=== PATIENT | female | born 1990 | race Caucasian/White ===

== ENCOUNTER 2019-04-01 17:40 | Inpatient (IN) ==
--- OUTSIDE RECORDS SUMMARY | 2019-04-01 17:46 | External Medical Summary | Continuity of Care Document ---
:1990 Author Name Flynn Mckay, Provider Address Unavailable Unavailable , Care Team Providers Name Role Phone Unavailable Unavailable Unavailable PAVITHRA CORTEZ Unavailable Unavailable Unavailable Unavailable Unavailable Problems Graves disease (242.00) (E05.00) Allergies and Adverse Reactions Penicillins (Allergy) Trimox (Allergy) Medications Synthroid 175 MCG Oral Tablet; TAKE 1 TA BLET DAILY WITH A FULL GLASS OF WATER ON AN EMPTY STOMACH, WAIT 30 MINUTES TO EAT , M.D. Start: Refills: 0 Aviane 0.1-20 MG-MCG Oral Tablet; TAKE 1 TABLET DAILY. , M.D . Start: 01-Dec-2014 Refills: 0 Proctozone-HC 2.5 % Rectal Cream; INSERT 1 APPLICATORFUL RECTALLY TWICE DAILY FOR 7 DAYS, THEN NEEDED. , M.D. Start: 01-Dec-2014 Refills: 0 Procedures History of Pyeloplasty Status: Completed History of Colonoscopy (Fiberoptic) Stat us: Completed Immunizations Immunizations not documented Family History Unknown Family Member Family history of diabetes mellitus (V18.0) Status: Active Comments: Family History (Z83.3) Mother Family history of hypertension (V17.49) (Z82.49) Status: Act [place] Father Family history of hyperlipidemia (V18.19) (Z83.438) Status: Active Family history of type 2 diabetes mellitus (V18.0) (Z83.3) S tatus: Active Sister Family history of hypercholesterolemia (V18.19) (Z83.42) Sta tus: Active Social History - Smoking Status Never smoker Plan of Treatment Planned Observations Planned Goals not documented Results No Known Results Results not documented
[2019-04-01] MEDS ORDERED: NIFEdipine 10 MG CAP PO STA (18:17)
[2019-04-01] MEDS ORDERED: NIFEdipine 10 MG CAP ONE (18:17)
[2019-04-01] MEDS ORDERED: OXYTOCIN 30 UNITS/500 ML BAG IV PRN (18:27)
[2019-04-01] MEDS: LACTATED RINGER'S 1,000 ML IV PRN (18:40)
[2019-04-01 18:50] LABS: Hematocrit (blood only) 40.6 % (37-47); Hemoglobin 13.6 g/dL (12.0-16.0); Mean Corpuscular Hemoglobin 27.5 pg (25-34); Mean Platelet Volume 11.7 fL (7.4-10.4); Platelet Count 177 K/uL (130-400); RDW Coefficient of Variation 14.9 % (11.5-14.5); RDW Standard Deviation 44.1 fL (36.4-46.3); Red Blood Count 4.95 M/uL (4.2-5.4); White Blood Count 10.49 K/uL (4.8-10.8)
[2019-04-01 18:51] LABS: Mean Corpuscular Hgb Conc 33.5 g/dL (32-36)
[2019-04-01 19:08] LABS: Albumin Level 2.8 gm/dl (3.4-5.0); BUN Creatinine Ratio 11.4 (10-20); Calcium 9.1 mg/dl (8.5-10.1); Creatinine Clr Calc Pharmacy 144.8 ml/min; Est GFR (African American) 119.9; Est GFR (Non-African American) 103.5; Potassium 4.1 mmol/L (3.5-5.1)
[2019-04-01] MEDS ORDERED: LABETALOL HCL 100 MG TAB PO ONE (19:10)
[2019-04-01 19:11] LABS: Albumin Globulin Ratio 0.6 (0.9-2); Bilirubin,Total 0.3 mg/dl (0.2-1); Globulin 4.4 gm/dl (2.5-4.0); Total Protein 7.2 gm/dl (6.4-8.2)
[2019-04-01 20:25] LABS: Creatinine Urine Random 35.1 mg/dl; Protein Creatinine Ratio Urine 0.2 (0-0.2); Total Protein Urine Random 7.3 mg/dl (0-11.9)
--- NOTE | 2019-04-01 20:44 | Obstetrical Progress Note ---
Date of Service April 01, 2019 Subjective 28yo G1 @ 37 + week s. seen in office today for routine PNC Bp in office was elevated. pt was sent to L&D for eavl; On arrival she has no headache, SOB, visual changes or RUQ pain. she does however have 2+pitting edema Bp's on arrival was elevated. pt received Procardia and labetalol BP's are now 130;80. [facility] labs are nml Plan' Observation overnight Results & Data Vital Signs (Past 12 Hours) Vital Signs Temp Pulse Pulse Resp BP BP 04/01/19 20:33 75 139/83 04/01/19 20:23 75 134/82 04/01/19 20:11 83 137/93 04/01/19 19:53 79 140/87 04/01/19 19:39 85 155/88 H 04/01/19 19:34 78 143/92 H 04/01/19 19:30 36.6 C 78 18 143/92 H 04/01/19 19:23 82 158/88 H 04/01/19 19:13 81 161/92 H 04/01/19 19:03 81 160/91 H 04/01/19 18:53 74 157/92 H 04/01/19 18:43 75 157/92 H 04/01/19 18:18 75 161/99 H 04/01/19 18:08 83 177/119 H 04/01/19 18:04 20 04/01/19 17:57 79 165/103 H 04/01/19 17:53 81 162/103 H
[2019-04-02] MEDS: LEVOTHYROXINE SODIUM 175 MCG TABLET PO SCH (06:10)
--- NOTE | 2019-04-02 07:58 | Obstetrical Progress Note ---
Date of Service April 02, 2019 Subjective pt is gestational HTN w/o severe features at 37+ weeks Bp stable with labetalol discussed induction of labor with pt as recommended by ACOG pt agrees with plan Growth scan ordered ]will start induction Results & Data Vital Signs (Past 12 Hours) Vital Signs Temp Pulse Resp BP 04/02/19 07:43 76 152/92 H 04/02/19 07:28 64 142/89 H 04/02/19 07:26 18 04/02/19 07:07 75 140/87 04/02/19 06:20 71 138/89 04/02/19 06:15 68 20 140/91 04/02/19 06:13 37.0 C 04/02/19 02:25 18 04/02/19 02:24 36.8 C 68 134/84 04/01/19 22:26 36.9 C 85 136/78 04/01/19 21:37 82 137/84 04/01/19 20:33 75 139/83 04/01/19 20:23 75 134/82 04/01/19 20:11 83 137/93
[2019-04-02] MEDS ORDERED: LABETALOL HCL 100 MG TAB PO SCH (08:00)
--- NOTE | 2019-04-02 09:17 | Ultrasound Report ---
ULTRASOUND LIMITED CLINICAL HISTORY: Assess growth. COMPARISON STUDY: No priors. FINDINGS: Real-time, grayscale, and color Doppler sonography of the fetus and gravid uterus is perfor med. There is a single live uterine gestation with an estimated heart rate of 129 beats per minute. P ositioning is cephalic. The placenta appears fundal. Scattered venous lakes are noted. The amniotic f luid index measures 10.13 cm, with the largest pocket measuring 3.7 cm. The cervix is not well-visual ized. Femoral length measures 7.58 cm, corresponding to estimated age of 38 weeks 5 days. Abdominal circumference measures 37.3 cm, corresponding to estimated age of 41 weeks 2 days. Biparietal diameter measures 9.91 cm, corresponding to an estimated age of 40 weeks 5 days. Head circumference measures 35.68 cm, corresponding to estimated age of 41 weeks 6 days. Overall estimation of age is 40 weeks 4 days +/- 2 weeks 6 days. Estimated weight is 4191 g +/- 629 g. IMPRESSION: 1. There is a single live intrauterine gestation as detailed above. 2. Note that this does not constitute a dedicated anatomic scan. Dictated: 04/02/2019 9:04 AM Transcribed: 04/02/2019 9:12 AM Amita [id number] Electronically signed by: Kiko Macias M.D. 04/02/2019 9:16 AM
[2019-04-02] MEDS ORDERED: miSOPROStoL 50 MCG TAB PO ONE (12:15)
[2019-04-02] MEDS ORDERED: DINOPROSTONE 10 MG INSERT PV ONE (17:06)
[2019-04-02] MEDS ORDERED: LABETALOL HCL 100 MG TAB PO ONE (17:47)
[2019-04-02] MEDS: LABETALOL HCL 100 MG TAB PO SCH ×2 (18:31→23:56)
[2019-04-03] MEDS: LABETALOL HCL 100 MG TAB PO SCH ×3 (06:03→22:03)
[2019-04-03] MEDS: LEVOTHYROXINE SODIUM 175 MCG TABLET PO SCH (06:39)
[2019-04-03 07:45] LABS: Basophils # (auto) 0.01 K/uL (0-0.2); Basophils % (auto) 0.1 %; Eosinophils # (auto) 0.03 K/uL (0-0.5); Eosinophils % (auto) 0.3 %; Hematocrit (blood only) 38.9 % (37-47); Immature Granulocytes # (auto) 0.05 K/uL (0.00-0.02); Immature Granulocytes % (auto) 0.5 %; Lymphocytes # (auto) 1.56 K/uL (1.2-3.4); Lymphocytes % (auto) 16.7 %; Mean Corpuscular Hemoglobin 27.6 pg (25-34); Mean Corpuscular Hgb Conc 33.4 g/dL (32-36); Mean Corpuscular Volume 82.6 fL (80-100); Monocytes # (auto) 0.78 K/uL (0.11-0.59); Monocytes % (auto) 8.3 %; Neutrophils # (auto) 6.92 K/uL (1.4-6.5); Neutrophils % (auto) 74.1 %; Platelet Count 154 K/uL (130-400); RDW Coefficient of Variation 15.1 % (11.5-14.5); RDW Standard Deviation 45.7 fL (36.4-46.3); Red Blood Count 4.71 M/uL (4.2-5.4); White Blood Count 9.35 K/uL (4.8-10.8)
[2019-04-03 08:12] LABS: Albumin Level 2.6 gm/dl (3.4-5.0); BUN Creatinine Ratio 11.2 (10-20); Calcium 8.8 mg/dl (8.5-10.1); Creatinine Clr Calc Pharmacy 137.7 ml/min; Est GFR (African American) 112.9; Est GFR (Non-African American) 97.4
[2019-04-03 08:15] LABS: Albumin Globulin Ratio 0.6 (0.9-2); Bilirubin,Total 0.5 mg/dl (0.2-1); Globulin 4.1 gm/dl (2.5-4.0); Total Protein 6.7 gm/dl (6.4-8.2)
[2019-04-03] MEDS ORDERED: DINOPROSTONE 10 MG INSERT PV ONE (08:53)
--- NOTE | 2019-04-03 08:56 | Obstetrical Progress Note ---
Date of Service April 03, 2019 Subjective Patient is a 28 yo at 37.6 wks who was admitted yesterday for IOL at term with elevated BP needed to be treated with medication She received 1 dose of PO Cytotec and 1 Cervidil last night, came out this morning Her labs have been WNL, BP's have been stable Denies ULLOA/ Change in vision/ N&V/ Epigastric or RUQ pain No ctxs/ LOF/VB +FM Reviewed her PMH, PSH, Meds, allergies On Synthroid and PNV No h/o smoking/ alcohol or drug use No h/o genital HSV/ Chlamydia/ GC GBS negative Vital Signs Temp Pulse Resp BP 04/03/19 08:54 69 143/96 H 04/03/19 08:43 68 139/96 04/03/19 06:41 68 136/92 04/03/19 06:02 66 18 143/89 H 04/03/19 04:38 36.7 C 68 16 132/81 04/03/19 02:32 74 129/83 04/02/19 23:54 36.6 C 75 16 134/88 04/02/19 21:29 36.7 C 75 16 137/79 04/02/19 19:05 36.8 C 16 04/02/19 19:04 66 137/85 04/02/19 18:28 70 141/92 H 04/02/19 17:09 77 154/100 H 04/02/19 16:54 74 145/99 H 04/02/19 15:17 36.8 C 16 04/02/19 15:16 68 143/91 H 04/02/19 12:57 78 132/90 04/02/19 10:47 76 135/84 Lab Results 04/01/19 04/01/19 04/01/19 Range/Units 18:35 18:35 18:35 WBC 10.49 (4.8-10.8) K/uL RBC 4.95 (4.2-5.4) M/uL Hgb 13.6 (12.0-16.0) g/dL Hct 40.6 (37-47) % MCV 82.0 (80-100) fL MCH 27.5 (25-34) pg MCHC 33.5 (32-36) g/dL RDW Std Deviation 44.1 (36.4-46.3) fL RDW Coeff of Nav[place] 14.9 H (11.5-14.5) % Plt Count 177 (130-400) K/uL MPV 11.7 H (7.4-10.4) fL Immature Gran % (Auto) % Neut % (Auto) % Lymph % (Auto) % [place] % (Auto) % Eos % (Auto) % Baso % (Auto) % Immature Gran # (Auto) (0.00-0.02) K/uL Neut # (Auto) (1.4-6.5) K/uL Lymph # (Auto) (1.2-3.4) K/uL [place] # (Auto) (0.11-0.59) K/uL Eos # (Auto) (0-0.5) K/uL Baso # (Auto) (0-0.2) K/uL Sodium 136 (136-145) mmol/L Potassium 4.1 (3.5-5.1) mmol/L Chloride 106 (98-107) mmol/L Carbon Dioxide 22 (21-32) mmol/L Anion Gap 8.0 (3-11) BUN 9 (7-18) mg/dl Creatinine 0.78 (0.6-1.2) mg/dl Est Cr Clr Drug Dosing 144.8 ml/min Est GFR ( Amer) 119.9 Est GFR (Non-Af Amer) 103.5 BUN/Creatinine Ratio 11.4 (10-20) Glucose 79 (70-99) mg/dl Calcium 9.1 (8.5-10.1) mg/dl Total Bilirubin 0.3 (0.2-1) mg/dl AST 11 L (15-37) U/L ALT 12 (12-78) U/L Alkaline Phosphatase 143 H (45-117) U/L Lactate Dehydrogenase 169 (84-246) U/L Total Protein 7.2 (6.4-8.2) gm/dl Albumin 2.8 L (3.4-5.0) gm/dl Globulin 4.4 H (2.5-4.0) gm/dl Albumin/Globulin Ratio 0.6 L (0.9-2) Ur Random Creatinine mg/dl U Random Total Protein (0-11.9) mg/dl Protein/Creatinin Ratio (0-0.2) 04/01/19 04/03/19 04/03/19 Range/Units 19:55 07:29 07:29 WBC 9.35 (4.8-10.8) K/uL RBC 4.71 (4.2-5.4) M/uL Hgb 13.0 (12.0-16.0) g/dL Hct 38.9 (37-47) % MCV 82.6 (80-100) fL MCH 27.6 (25-34) pg MCHC 33.4 (32-36) g/dL RDW Std Deviation 45.7 (36.4-46.3) fL RDW Coeff of Nav[place] 15.1 H (11.5-14.5) % Plt Count 154 (130-400) K/uL MPV 12.0 H (7.4-10.4) fL Immature Gran % (Auto) 0.5 % Neut % (Auto) 74.1 % Lymph % (Auto) 16.7 % [place] % (Auto) 8.3 % Eos % (Auto) 0.3 % Baso % (Auto) 0.1 % Immature Gran # (Auto) 0.05 H (0.00-0.02) K/uL Neut # (Auto) 6.92 H (1.4-6.5) K/uL Lymph # (Auto) 1.56 (1.2-3.4) K/uL [place] # (Auto) 0.78 H (0.11-0.59) K/uL Eos # (Auto) 0.03 (0-0.5) K/uL Baso # (Auto) 0.01 (0-0.2) K/uL Sodium 136 (136-145) mmol/L Potassium 4.0 (3.5-5.1) mmol/L Chloride 108 H (98-107) mmol/L Carbon Dioxide 21 (21-32) mmol/L Anion Gap 8.0 (3-11) BUN 9 (7-18) mg/dl Creatinine 0.82 (0.6-1.2) mg/dl Est Cr Clr Drug Dosing 137.7 ml/min Est GFR ( Amer) 112.9 Est GFR (Non-Af Amer) 97.4 BUN/Creatinine Ratio 11.2 (10-20) Glucose 93 (70-99) mg/dl Calcium 8.8 (8.5-10.1) mg/dl Total Bilirubin 0.5 (0.2-1) mg/dl AST 12 L (15-37) U/L ALT 13 (12-78) U/L Alkaline Phosphatase 144 H (45-117) U/L Lactate Dehydrogenase (84-246) U/L Total Protein 6.7 (6.4-8.2) gm/dl Albumin 2.6 L (3.4-5.0) gm/dl Globulin 4.1 H (2.5-4.0) gm/dl Albumin/Globulin Ratio 0.6 L (0.9-2) Ur Random Creatinine 35.1 mg/dl U Random Total Protein 7.3 (0-11.9) mg/dl Protein/Creatinin Ratio 0.2 (0-0.2) VE: 2/ 50%/ -3, posterior FHR reactive [place]: mild irregular ctxs Plan to continue with IOL/ cervical ripening, Cervidil All questions were answered Results & Data Vital Signs (Past 12 Hours) Vital Signs Temp Pulse Resp BP 04/03/19 08:43 68 139/96 04/03/19 06:41 68 136/92 04/03/19 06:02 66 18 143/89 H 04/03/19 04:38 36.7 C 68 16 132/81 04/03/19 02:32 74 129/83 04/02/19 23:54 36.6 C 75 16 134/88 04/02/19 21:29 36.7 C 75 16 137/79
--- NOTE | 2019-04-03 09:55 | Obstetrical Progress Note ---
Date of Service April 03, 2019 Subjective Cervidil is placed EFW: 4100 gr yesterday, cephalic Discussed limitation of US and ACOG recommendations Continue to monitor Results & Data Vital Signs (Past 12 Hours) Vital Signs Temp Pulse Resp BP 04/03/19 09:35 62 137/84 04/03/19 09:24 65 134/85 04/03/19 09:15 72 125/79 04/03/19 09:06 62 140/86 04/03/19 08:54 36.4 C L 69 143/96 H 04/03/19 08:43 68 139/96 04/03/19 06:41 68 136/92 04/03/19 06:02 66 18 143/89 H 04/03/19 04:38 36.7 C 68 16 132/81 04/03/19 02:32 74 129/83 04/02/19 23:54 36.6 C 75 16 134/88
[2019-04-03] MEDS ORDERED: BUTORPHANOL TARTRATE 1 MG/ML VIAL IV PRN (16:12)
--- NOTE | 2019-04-03 17:17 | Obstetrical Progress Note ---
Date of Service April 03, 2019 Subjective Patient is reevaluated She has been painful since about 10 am Pain comes and goes, lower abdominal like pressure No LOF/VB +FM VE: 2-3cm/ 60%/ -3 FHR categ I Discussed pain management, IV stadol vs epidural She likes to walk first and then get Stadol Continue to monitor Results & Data Vital Signs (Past 12 Hours) Vital Signs Temp Pulse Resp BP 04/03/19 14:26 73 125/60 04/03/19 12:58 75 123/65 04/03/19 10:46 36.8 C 75 16 138/85 04/03/19 09:35 62 137/84 04/03/19 09:24 65 134/85 04/03/19 09:15 72 125/79 04/03/19 09:06 62 140/86 04/03/19 08:54 36.4 C L 69 143/96 H 04/03/19 08:43 68 139/96 04/03/19 06:41 68 136/92 04/03/19 06:02 66 18 143/89 H
[2019-04-03] MEDS: LACTATED RINGER'S 1,000 ML IV PRN (19:47)
--- NOTE | 2019-04-03 22:04 | Obstetrical Progress Note ---
Date of Service April 03, 2019 Subjective Patient is reevaluated She was painful and received Stadol about 2hours ago and allan her sleepy Does not feel ctxs nor pain No LOF/VB +FM VE: 2-3cm/ 60%/ -3, soft FHR categ I [place]: ctxs q 2-3 min Likes to eat and shower Plan expectant management until ctxs will space out then will continue with IOL Continue to monitor closely Results & Data Vital Signs (Past 12 Hours) Vital Signs Temp Pulse Resp BP 04/03/19 21:59 71 138/84 04/03/19 19:42 37.0 C 80 20 139/73 04/03/19 16:11 37.0 C 20 04/03/19 14:26 73 125/60 04/03/19 12:58 75 123/65 04/03/19 10:46 36.8 C 75 16 138/85
[2019-04-04] MEDS: miSOPROStoL 50 MCG TAB PO SCH ×2 (01:46→06:02)
[2019-04-04] MEDS: LABETALOL HCL 100 MG TAB PO SCH ×2 (05:33→13:50)
[2019-04-04] MEDS: LEVOTHYROXINE SODIUM 175 MCG TABLET PO SCH (06:02)
--- NOTE | 2019-04-04 06:45 | Obstetrical Progress Note ---
Date of Service April 04, 2019 Subjective Patient is reevaluated She took shower and ate breakfast Ctxs spaced out few hours after Cervidil was taken out She has not felt much ctxs after PO Cytotec No LOF/VB +FM VSS Afebrile FHR categ I Plan to continue with IOL with pitocin Continue to monitor Results & Data Vital Signs (Past 12 Hours) Vital Signs Temp Pulse Resp BP 04/04/19 05:32 75 133/76 04/04/19 03:56 69 133/81 04/04/19 01:18 36.9 C 76 18 125/65 04/03/19 22:56 36.6 C 73 16 139/81 04/03/19 21:59 71 138/84 04/03/19 21:58 16 04/03/19 19:42 37.0 C 80 20 139/73
[2019-04-04] MEDS ORDERED: OXYTOCIN 30 UNITS/500 ML BAG IV PRN (08:00)
--- NOTE | 2019-04-04 08:00 | Obstetrical Progress Note ---
Date of Service April 04, 2019 Subjective Gest HTN - on labetalol Induction day #2 VE; 2-3/60/-3 EFW 8-9lbs will start Pitocin augmentation pt agreed Results & Data Vital Signs (Past 12 Hours) Vital Signs Temp Pulse Resp BP 04/04/19 07:39 36.6 C 20 04/04/19 07:18 74 133/74 04/04/19 05:32 75 133/76 04/04/19 03:56 69 133/81 04/04/19 01:18 36.9 C 76 18 125/65 04/03/19 22:56 36.6 C 73 16 139/81 04/03/19 21:59 71 138/84 04/03/19 21:58 16
[2019-04-04] MEDS: OXYTOCIN 30 UNITS/500 ML BAG IV PRN ×2 (08:32→23:56)
[2019-04-04] MEDS: LACTATED RINGER'S 1,000 ML IV PRN ×2 (08:34→15:59)
[2019-04-04] MEDS ORDERED: Nursing to Pharmacy Communication ONE (13:01)
--- NOTE | 2019-04-04 16:06 | Obstetrical Progress Note ---
Date of Service April 04, 2019 Subjective pt doing well Pit at 20Mu with minimal ctx FHR; CAT1 VE; 1-2 Attempt to AROM - unsuccessful Landa bulb placed with 30 cc saline pt tolerated procedure well continue pitocin Results & Data Vital Signs (Past 12 Hours) Vital Signs Temp Pulse Resp BP 04/04/19 16:01 65 145/85 H 04/04/19 14:43 64 140/90 04/04/19 13:59 67 145/97 H 04/04/19 13:11 70 167/102 H 04/04/19 12:56 80 146/111 H 04/04/19 12:40 73 143/101 H 04/04/19 11:29 36.8 C 67 20 139/94 04/04/19 10:36 70 139/92 04/04/19 09:36 72 133/80 04/04/19 08:33 69 139/90 04/04/19 07:39 36.6 C 20 04/04/19 07:18 74 133/74 04/04/19 05:32 75 133/76
--- NOTE | 2019-04-04 21:30 | Obstetrical Progress Note ---
Date of Service April 04, 2019 Subjective Induction for Gest. HTN VE: 2-3/high failed attempt to AROM Pt tolerated exam poorly will consider epidural analgesia and then AROM Results & Data Vital Signs (Past 12 Hours) Vital Signs Temp Pulse Resp BP 04/04/19 19:32 73 159/90 H 04/04/19 18:27 70 141/91 H 04/04/19 17:14 62 164/91 H 04/04/19 16:01 65 145/85 H 04/04/19 15:00 36.6 C 20 04/04/19 14:43 64 140/90 04/04/19 13:59 67 145/97 H 04/04/19 13:11 70 167/102 H 04/04/19 12:56 80 146/111 H 04/04/19 12:40 73 143/101 H 04/04/19 11:29 36.8 C 67 20 139/94 04/04/19 10:36 70 139/92 04/04/19 09:36 72 133/80
[2019-04-04] MEDS ORDERED: ePHEDrine sulfate 50 MG/ML AMP ONE (21:42)
[2019-04-04] MEDS ORDERED: fentaNYL citrate 100 MCG/2 ML VIAL ONE (21:42)
[2019-04-04] MEDS ORDERED: fentaNYL 2MCG/ML ROPIV 1.25MG/ML 100 ML BAG EPI ONE (21:43)
[2019-04-04] MEDS ORDERED: BUPIVACAINE 0.25% 30 ML VIAL ONE (21:43)
--- NOTE | 2019-04-04 22:40 | Anesthesiology Consultation ---
Date of Service April 04, 2019 Assessment & Plan Chart Review Chart Review: Acceptable Risk for Labor Epidural Consults Requested none History Height/Weight Height: 5 ft 7 in Weight: 121.109 kg Allergies Allergy/AdvReac Type Severity Reaction Status Date / Time Penicillins Allergy Mild Blurred Verified 02/05/18 16:37 vision and headache Medications Home Medications Medication Instructions Recorded Confirmed Last Taken levothyroxine [Synthroid] 175 mcg PO DAILY 02/05/18 04/01/19 04/01/19 vit-iron fum-folic ac 1 tab PO DAILY 04/01/19 04/01/19 04/01/19 [ Vitamin] Active Medications Generic Name Dose Route Start Last Admin Trade Name Freq PRN Reason Stop Dose Admin Butorphanol Tartrate 1 mg 04/03/19 16:12 04/03/19 19:47 Stadol IV 05/03/19 16:11 1 mg Q3HWA PRN Administration Pain Oxytocin 30 units in 500 mls @ 0 mls/hr 04/04/19 06:45 04/04/19 18:50 Pitocin IV 04/06/19 06:44 0 units/hr .Q0M PRN 0 mls/hr Labor Induction/Augmentation Titration Protocol 0 UNITS/HR Labetalol HCl 100 mg 04/02/19 18:00 04/04/19 13:50 Normodyne PO 05/02/19 17:59 100 mg Q8 LUDIVINA Administration Levothyroxine Sodium 175 mcg 04/02/19 06:30 04/04/19 06:02 Synthroid PO 05/02/19 06:29 175 mcg DAILYBB LUDIVINA Administration Past Medical History Medical History Hypothyroidism Social History Smoking Status: Never smoker Hx Alcohol Use: No Hx Substance Use: No substance use type: does not use Physical Exam Vital Signs Last Vital Signs Temp 36.6 C 04/04/19 15:00 Pulse 71 04/04/19 22:38 Resp 20 04/04/19 15:00 BP 135/79 04/04/19 22:38 Pulse Ox 97 04/04/19 22:36 Testing Laboratory Results 04/03/19 07:29 04/03/19 07:29
[2019-04-04] MEDS ORDERED: NALOXONE HCL 0.4 MG/1 ML VIAL/CARP IV PRN (22:42)
[2019-04-04] MEDS ORDERED: DiphenhydrAMINE HCL 50 MG/ML VIAL IV PRN (22:42)
[2019-04-04] MEDS ORDERED: ePHEDrine sulfate 50 MG/ML AMP IV PRN (22:42)
[2019-04-04] MEDS ORDERED: NALBUPHINE HCL INJ 10 MG/ML AMP IV PRN (22:42)
[2019-04-04] MEDS ORDERED: NALOXONE HCL 1 MG in SODIUM CHLORIDE 0.9% 1000ML 1,000 ML IV PRN (22:42)
[2019-04-04] MEDS: LACTATED RINGER'S 1,000 ML IV SCH (22:49)
--- NOTE | 2019-04-04 23:46 | Obstetrical Progress Note ---
Date of Service April 04, 2019 Subjective Pt doing well Epidural analgesia Placed FHR' CAT1 Ctx; minimal ]AROM with scalp IUPC placed starting pitocin augmentation Results & Data Vital Signs (Past 12 Hours) Vital Signs Temp Pulse Resp BP Pulse Ox 04/04/19 23:41 80 95 04/04/19 23:36 73 130/80 95 04/04/19 23:31 77 95 04/04/19 23:29 65 94 04/04/19 23:26 65 95 04/04/19 23:24 66 94 04/04/19 23:22 64 122/69 04/04/19 23:21 66 95 04/04/19 23:18 67 94 04/04/19 23:16 66 95 04/04/19 23:12 66 94 04/04/19 23:11 66 95 04/04/19 23:06 66 125/70 95 04/04/19 23:01 68 95 04/04/19 22:56 67 96 04/04/19 22:51 74 96 04/04/19 22:50 69 133/77 04/04/19 22:47 67 132/78 04/04/19 22:46 69 97 04/04/19 22:44 71 138/81 04/04/19 22:41 71 139/80 97 04/04/19 22:38 71 135/79 04/04/19 22:36 71 97 04/04/19 22:35 72 142/83 H 04/04/19 22:32 69 139/83 04/04/19 22:31 78 98 04/04/19 22:26 75 142/94 H 99 04/04/19 22:24 73 142/92 H 04/04/19 22:21 85 99 04/04/19 22:18 76 167/95 H 04/04/19 22:16 80 100 04/04/19 22:11 71 131/80 98 04/04/19 19:32 73 159/90 H 04/04/19 18:27 70 141/91 H 04/04/19 17:14 62 164/91 H 04/04/19 16:01 65 145/85 H 04/04/19 15:00 36.6 C 20 04/04/19 14:43 64 140/90 04/04/19 13:59 67 145/97 H 04/04/19 13:11 70 167/102 H 04/04/19 12:56 80 146/111 H 04/04/19 12:40 73 143/101 H
[2019-04-05] MEDS: LABETALOL HCL 100 MG TAB PO SCH ×3 (00:35→15:47)
[2019-04-05] MEDS ORDERED: CITRIC ACID/SODIUM CITRATE 15 ML UDC PO SCH (06:00)
[2019-04-05] MEDS ORDERED: CLINDAMYCIN 900 MG in DEXTROSE 5% 50 ML IV SCH (06:00)
[2019-04-05] MEDS: LEVOTHYROXINE SODIUM 175 MCG TABLET PO SCH (06:09)
--- NOTE | 2019-04-05 06:42 | Obstetrical Progress Note ---
Date of Service April 05, 2019 Subjective Pt doing well stable BP on Meds FHR; CAT1 Ctx; 3-4/50/-3 pit; 20MU scalp replaced IUPC on place will continue with Pitocin augmentation Results & Data Vital Signs (Past 12 Hours) Vital Signs Temp Pulse Resp BP Pulse Ox 04/05/19 06:37 66 148/97 H 04/05/19 06:36 66 99 04/05/19 06:31 80 98 04/05/19 06:26 80 98 04/05/19 06:21 62 147/94 H 97 04/05/19 06:16 61 98 04/05/19 06:11 74 99 04/05/19 06:06 65 142/92 H 98 04/05/19 06:01 66 96 04/05/19 05:56 63 97 04/05/19 05:52 65 149/99 H 04/05/19 05:51 78 98 04/05/19 05:46 80 99 04/05/19 05:41 72 99 04/05/19 05:37 64 150/87 H 04/05/19 05:36 66 97 04/05/19 05:31 60 95 04/05/19 05:26 60 96 04/05/19 05:22 58 L 153/88 H 04/05/19 05:21 60 97 04/05/19 05:16 69 92 04/05/19 05:13 62 93 04/05/19 05:11 58 L 96 04/05/19 05:06 57 L 131/85 96 04/05/19 05:01 59 L 95 04/05/19 04:56 57 L 96 04/05/19 04:52 58 L 146/83 H 04/05/19 04:51 60 95 04/05/19 04:46 59 L 95 04/05/19 04:41 57 L 95 04/05/19 04:36 60 140/82 96 04/05/19 04:31 57 L 96 04/05/19 04:26 60 96 04/05/19 04:23 57 L 145/83 H 04/05/19 04:21 59 L 97 04/05/19 04:16 61 95 04/05/19 04:11 56 L 96 04/05/19 04:06 61 153/90 H 97 04/05/19 04:01 61 95 04/05/19 04:00 36.6 C 18 04/05/19 03:56 57 L 96 04/05/19 03:51 61 132/71 96 04/05/19 03:46 61 95 04/05/19 03:41 59 L 96 04/05/19 03:37 57 L 122/76 04/05/19 03:36 57 L 96 04/05/19 03:31 58 L 96 04/05/19 03:26 57 L 95 04/05/19 03:23 56 L 125/77 04/05/19 03:21 55 L 95 04/05/19 03:16 54 L 96 04/05/19 03:11 79 98 04/05/19 03:06 56 L 133/86 97 04/05/19 03:01 57 L 96 04/05/19 02:56 56 L 96 04/05/19 02:52 56 L 127/83 04/05/19 02:51 55 L 96 04/05/19 02:46 59 L 96 04/05/19 02:41 55 L 97 04/05/19 02:38 55 L 133/82 04/05/19 02:36 57 L 97 04/05/19 02:31 58 L 98 04/05/19 02:30 36.6 C 18 04/05/19 02:26 57 L 96 04/05/19 02:21 65 130/79 97 04/05/19 02:16 66 96 04/05/19 02:15 70 93 04/05/19 02:11 59 L 97 04/05/19 02:06 64 127/76 97 04/05/19 02:05 68 93 04/05/19 02:01 63 96 04/05/19 01:56 64 95 04/05/19 01:51 74 137/83 96 04/05/19 01:46 70 97 04/05/19 01:41 58 L 96 04/05/19 01:36 59 L 127/81 97 04/05/19 01:31 74 98 04/05/19 01:26 62 97 04/05/19 01:23 60 127/79 04/05/19 01:21 60 97 04/05/19 01:16 63 97 04/05/19 01:11 64 97 04/05/19 01:08 72 118/81 04/05/19 01:06 60 97 04/05/19 01:01 59 L 97 04/05/19 00:56 60 96 04/05/19 00:52 58 L 125/78 04/05/19 00:51 60 96 04/05/19 00:46 80 96 04/05/19 00:41 65 96 04/05/19 00:36 63 122/74 96 04/05/19 00:31 63 97 04/05/19 00:26 63 96 04/05/19 00:22 62 123/72 04/05/19 00:21 62 96 04/05/19 00:16 62 96 04/05/19 00:11 62 96 04/05/19 00:06 66 119/75 97 04/05/19 00:01 71 96 04/05/19 00:00 36.7 C 04/04/19 23:56 73 96 04/04/19 23:51 65 120/73 95 04/04/19 23:46 69 95 04/04/19 23:41 80 95 04/04/19 23:36 73 130/80 95 04/04/19 23:31 77 95 04/04/19 23:29 65 94 04/04/19 23:26 65 95 04/04/19 23:24 66 94 04/04/19 23:22 64 122/69 04/04/19 23:21 66 95 04/04/19 23:18 67 94 04/04/19 23:16 66 95 04/04/19 23:12 66 94 04/04/19 23:11 66 95 04/04/19 23:06 66 125/70 95 04/04/19 23:01 68 95 04/04/19 22:56 67 96 04/04/19 22:51 74 96 04/04/19 22:50 69 133/77 04/04/19 22:47 67 132/78 04/04/19 22:46 69 97 04/04/19 22:44 71 138/81 04/04/19 22:41 71 139/80 97 04/04/19 22:38 71 135/79 04/04/19 22:36 71 97 04/04/19 22:35 72 142/83 H 04/04/19 22:32 69 139/83 04/04/19 22:31 78 98 04/04/19 22:26 75 142/94 H 99 04/04/19 22:24 73 142/92 H 04/04/19 22:21 85 99 04/04/19 22:18 76 167/95 H 04/04/19 22:16 80 100 04/04/19 22:11 71 131/80 98 04/04/19 19:32 73 159/90 H
[2019-04-05] MEDS: LACTATED RINGER'S 1,000 ML IV SCH ×2 (07:04→14:49)
[2019-04-05] MEDS: fentaNYL 2MCG/ML ROPIV 1.25MG/ML 100 ML BAG EPI PRN ×4 (07:30→19:15)
[2019-04-05] MEDS ORDERED: OXYTOCIN 30 UNITS/500 ML BAG IV PRN (12:06)
[2019-04-05] MEDS ORDERED: BUPIVACAINE 0.25% 30 ML VIAL ONE (13:54)
[2019-04-05] MEDS ORDERED: CITRIC ACID/SODIUM CITRATE 15 ML UDC ONE (19:45)
[2019-04-05 19:59] LABS: Hematocrit (blood only) 37.9 % (37-47); Hemoglobin 12.8 g/dL (12.0-16.0); Immature Granulocytes # (auto) 0.07 K/uL (0.00-0.02); Immature Granulocytes % (auto) 0.5 %; Lymphocytes # (auto) 0.97 K/uL (1.2-3.4); Lymphocytes % (auto) 6.5 %; Mean Corpuscular Hemoglobin 27.9 pg (25-34); Mean Corpuscular Volume 82.6 fL (80-100); Mean Platelet Volume 11.8 fL (7.4-10.4); Monocytes # (auto) 0.68 K/uL (0.11-0.59); Monocytes % (auto) 4.6 %; Neutrophils % (auto) 88.4 %; Platelet Count 137 K/uL (130-400); RDW Coefficient of Variation 15.1 % (11.5-14.5); RDW Standard Deviation 45.4 fL (36.4-46.3); Red Blood Count 4.59 M/uL (4.2-5.4); White Blood Count 14.92 K/uL (4.8-10.8)
[2019-04-05 20:00] LABS: Mean Corpuscular Hgb Conc 33.8 g/dL (32-36)
[2019-04-05] MEDS ORDERED: OXYTOCIN 10 UNITS/ML VIAL ONE ×2 (20:14→20:59)
[2019-04-05] MEDS ORDERED: ePHEDrine sulfate 50 MG/ML AMP IV PRN (20:57)
[2019-04-05] MEDS ORDERED: NALOXONE HCL 1 MG in SODIUM CHLORIDE 0.9% 1000ML 1,000 ML IV PRN (20:57)
[2019-04-05] MEDS ORDERED: PROMETHAZINE HCL 25 MG in SODIUM CHLORIDE 0.9% 50 ML IV PRN (20:57)
[2019-04-05] MEDS ORDERED: METOCLOPRAMIDE HCL 20 MG in SODIUM CHLORIDE 0.9% 50 ML IV PRN (20:57)
[2019-04-05] MEDS ORDERED: LACTATED RINGER'S 500 ML IV PRN (20:57)
[2019-04-05] MEDS ORDERED: KETOROLAC 30 MG/ML VIAL IV PRN (20:57)
[2019-04-05] MEDS ORDERED: ONDANSETRON INJ 2 MG/ML 2 ML VIAL IV PRN (20:57)
[2019-04-05] MEDS ORDERED: MoRPHine SULFATE 2 MG/ML CARP IV PRN (20:57)
[2019-04-05] MEDS ORDERED: DiphenhydrAMINE HCL 50 MG/ML VIAL IV PRN ×2 (20:57)
[2019-04-05] MEDS ORDERED: MoRPHine SULFATE PF 1 MG/ML 10 ML AMP/VIAL INT SPINAL ONE (20:57)
[2019-04-05] MEDS ORDERED: NALOXONE HCL 0.08 MG in SYRINGE 1.8 ML IV PRN (20:57)
[2019-04-05] MEDS ORDERED: NALBUPHINE HCL INJ 10 MG/ML AMP IV PRN (20:57)
[2019-04-05] MEDS ORDERED: MEPERIDINE HCL 25 MG/ML CARP IV PRN (20:57)
[2019-04-05] MEDS ORDERED: NALOXONE HCL 0.4 MG/1 ML VIAL/CARP IV PRN (20:57)
[2019-04-05] MEDS ORDERED: HYDROmorphone INJ 0.5 MG/0.5 ML SYR IV PRN (20:57)
[2019-04-05] MEDS ORDERED: LIDOCAINE/EPINEPHRINE 2% 1:200,000 20 ML SDV ONE (20:59)
[2019-04-05] MEDS ORDERED: NO NARCOTICS OR SEDATIVES SCH (21:00)
[2019-04-05] MEDS ORDERED: ONDANSETRON INJ 2 MG/ML 2 ML VIAL ONE (21:00)
[2019-04-05] MEDS ORDERED: ePHEDrine sulfate 50 MG/ML AMP ONE (21:00)
[2019-04-05] MEDS ORDERED: PHENYLEPHRINE 100MCG/ML 5ML SYR ONE (21:00)
[2019-04-05] MEDS ORDERED: SODIUM CHLORIDE 0.9% 1000ML 1,000 ML IV SCH (21:00)
[2019-04-05] MEDS ORDERED: MoRPHine SULFATE PF 1 MG/ML 10 ML AMP/VIAL ONE (21:00)
--- NOTE | 2019-04-05 21:35 | Post Operative Brief Note ---
Immediate Post Op Note v1 Date of Surgery April 05, 2019 Pre & Post Diagnosis Operation Date: 04/05/19 20:00toxemia cephalopelvic disproportion <No data on this case meets the specified criteria> I identified the patient and participated in the time-out.: Yes Procedure Operation Date: 04/05/19 20:00 primary low segment ceasaean section <No data on this case meets the specified criteria> Surgeon Dom Gallegos MD Admission Specialist Rufino Estimated Blood Loss 600 Findings Consistent with Post-Op Diagnosis difficulty delivering infants shoulders Fluids 600 ml Specimens placenta cord gases Anesthesia Type General Complications none Disposition Accompanied Patient To Recovery: No Disposition: Recovery Room
[2019-04-05 21:36] LABS: Base Excess Cord Venous Blood -6.9 mEq/L (-7.7-1.9); Cord Venous Blood HCO3 16 mmol/L (18.4-26.8); Cord Venous Blood PCO2 29 mmHg (30.4-57.2); Cord Venous Blood PO2 89 mmHg (14.1-43.3); Cord Venous Blood pH 7.38 (7.20-7.44)
[2019-04-05] MEDS ORDERED: BENZOCAINE 20% AER SPR 82.5 GM CAN EXT PRN (21:36)
[2019-04-05] MEDS ORDERED: MAGNESIUM HYDROXIDE SUSP 30 ML UDC PO PRN (21:36)
[2019-04-05] MEDS ORDERED: SENNA 8.6 MG TAB PO PRN (21:36)
[2019-04-05] MEDS ORDERED: HYDROCORTISONE ACETATE 25 MG SUPP PR PRN (21:36)
[2019-04-05] MEDS ORDERED: SUPERCREAM 0.870% 15 GM JAR EXT PRN (21:36)
[2019-04-05] MEDS ORDERED: DIPHTHERIA/TETANUS/PERTUSSIS 0.5 ML SYR/VIAL IM ONE (21:36)
--- NOTE | 2019-04-05 21:42 | Anesthesia Procedure Note ---
Date of Service April 05, 2019 Anesthesia Post Epidural Note Vital Signs Vital Signs: Temp Pulse Resp BP Pulse Ox 36.4 C L 86 20 129/74 93 04/05/19 19:38 04/05/19 21:37 04/05/19 19:07 04/05/19 21:37 04/05/19 20:12 Pain Intensity Bilateral Anterior Abdomen: Pain Intensity: 0 Notes Mental Status: alert / awake / arousable Nausea / Vomiting: adequately controlled Pain: adequately controlled Airway Patency, RR, SpO2: stable & adequate BP & HR: stable & adequate Hydration State: stable & adequate Neuraxial Anesthesia: was administered and sensory block is resolving Anesthetic Complications: no major complications apparent and Pt Satisfied with anesthetic care Epidural: Removed without complications and With tip intact
[2019-04-05] MEDS ORDERED: LACTATED RINGER'S 1,000 ML IV SCH (21:45)
--- NOTE | 2019-04-05 22:20 | History and Physical Report ---
DATE OF ADMISSION: 04/05/2019 CHIEF COMPLAINT: Failed induction of labor, macrosomia, toxemia. HISTORY OF PRESENT ILLNESS: The patient is a 1, para 0, due date 04/18/2019. She was admitted on Sunday04/01/2019 with a diagnosis of toxemia. An ultrasound performed on that day revealed an estimated weight of over 8 pounds and the patient had to be placed on labetalol to control her blood pressure. She was then started on an induction. She had a series of steps. She had 2 Cervidil tapes. She has had several doses of Cytotec. Eventually she went to a Landa bulb with IV Pitocin. On the IV Pitocin, she eventually became fully dilated, pushed, she had an anterior cervical lip. We wait for the lip to clear and she basically had an arrest of descent, the presenting part was at about a -2 station. During this time, she also had some periodic heart rate abnormalities. The Pitocin had to be turned back and she did have an elevated temperature of 100.4. The diagnoses of arrest of labor secondary to cephalopelvic disproportion and suspected macrosomia. PAST MEDICAL HISTORY: ALLERGIC TO PENICILLIN. 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 No history of rheumatic fever, heart disease, heart murmur, or diabetes. SOCIAL HISTORY: No smoking. No excessive alcohol intake. Works at [employer]. FAMILY HISTORY: Mom 62 in good health. Father 67 in good health, 3 half brothers and sisters, 1 full brother, all in good health. REVIEW OF SYSTEMS: HEAD: No symptoms of frequent or severe headaches. EYES: No symptoms of blurred vision, double vision. EARS: No symptoms of frequent ear infections, difficulty hearing. NOSE: No symptoms of frequent nosebleeds, difficulty breathing through her nose. PHYSICAL EXAMINATION: GENERAL: Well-developed, well-nourished 28-year-old white female, alert, oriented x3 and cooperative, no acute distress, appears stated age. EYES: Conjunctivae are pink. Sclerae white, no evidence of jaundice. EARS: Had normal light reflex bilaterally. NOSE: Had normal mucosa. HEART: Had regular rhythm. S1, S2 were normal. ABDOMEN: Soft and nontender. Estimated weight over 8 pounds. No CVA tenderness. PELVIC: Large amount of molding, vertex presentation, -2 station. MUSCULOSKELETAL: Revealed no calf tenderness. IMPRESSIONS OF THIS CASE: Toxemia of , macrosomia, cephalopelvic disproportion, failed induction.
[2019-04-05] MEDS: OXYTOCIN 20 UNITS in LACTATED RINGER'S 1,000 ML IV SCH (22:38)
--- NOTE | 2019-04-05 23:37 | Anesthesiology Progress Note ---
Date of Service April 05, 2019 Anesthesia Post Procedure Vital Signs Vital Signs: Temp Pulse Resp BP Pulse Ox 04/05/19 23:35 95 H 93 04/05/19 23:30 93 H 93 04/05/19 23:27 87 148/68 H 04/05/19 23:25 94 H 93 04/05/19 23:20 95 H 92 04/05/19 23:17 93 H 151/72 H 04/05/19 23:15 97 H 92 04/05/19 23:10 94 H 93 04/05/19 23:07 90 153/79 H 04/05/19 23:05 96 H 92 04/05/19 23:00 94 H 93 04/05/19 22:57 84 154/72 H 04/05/19 22:55 88 94 04/05/19 22:50 86 94 04/05/19 22:47 83 157/78 H 04/05/19 22:45 86 93 04/05/19 22:40 84 94 04/05/19 22:37 81 18 156/78 H 04/05/19 22:35 87 94 04/05/19 22:30 82 95 04/05/19 22:27 81 18 156/79 H 04/05/19 22:25 84 95 04/05/19 22:20 84 95 04/05/19 22:19 85 94 04/05/19 22:17 83 18 151/77 H 04/05/19 22:15 82 95 04/05/19 22:10 84 96 04/05/19 22:07 82 18 151/78 H 04/05/19 22:05 87 96 04/05/19 22:00 89 96 04/05/19 21:58 90 150/75 H 04/05/19 21:57 18 04/05/19 21:55 92 H 97 04/05/19 21:50 84 96 04/05/19 21:48 93 H 154/69 H 04/05/19 21:47 18 04/05/19 21:37 37.3 C 86 18 129/74 04/05/19 20:13 101 H 141/67 H 04/05/19 20:12 102 H 93 04/05/19 20:10 102 H 148/76 H 94 04/05/19 20:07 100 H 194/81 H 99 01/18/20 20:05 97 H 93 18/20 20:04 99 H 202/85 H 18/20 20:02 101 H 99 /18/20 20:01 103 H 185/79 H 18/20 19:58 100 H 172/78 H 18/20 19:57 101 H 99 18/20 19:56 105 H 94 /18/20 19:55 102 H 145/83 H 18/20 19:52 114 H 97 18/20 19:49 98 H 92 18/20 19:47 105 H 98 18/20 19:42 106 H 96 18/20 19:38 36.4 C L 18/20 19:37 103 H 143/70 H 96 18/20 19:34 110 H 127/67 18/20 19:32 104 H 100 18/20 19:31 100 H 144/72 H 18/20 19:28 103 H 145/81 H 18/20 19:27 101 H 99 18/20 19:22 100 H 164/77 H 99 18/20 19:19 113 H 163/76 H 18/20 19:17 108 H 97 18/20 19:16 108 H 157/74 H 18/20 19:13 102 H 147/75 H 18/20 19:12 110 H 98 18/20 19:07 100 H 20 134/60 99 18/20 19:04 107 H 160/81 H 18/20 19:02 114 H 95 18/20 19:01 120 H 151/75 H 18/20 19:00 114 H 93 18/20 18:58 118 H 159/90 H 18/20 18:57 119 H 96 18/20 18:55 102 H 147/80 H 18/20 18:52 103 H 130/99 95 18/20 18:51 98 H 93 18/20 18:47 99 H 97 18/20 18:42 102 H 97 18/20 18:37 99 H 99 18/20 18:36 111 H 89 L 18/20 18:35 37.1 C 20 01/18/20 18:32 99 H 96 20 18:27 106 H 96 20 18:22 104 H 96 20 18:21 101 H 20 140/71 04/05/19 18:17 95 H 95 20 18:15 95 H 94 04/05/19 18:12 110 H 95 20 18:08 97 H 94 04/05/19 18:07 97 H 95 04/05/19 18:02 37.4 C 99 H 134/70 95 20 18:00 97 H 94 20 17:57 96 H 95 20 17:52 107 H 95 20 17:47 99 H 96 20 17:46 108 H 94 20 17:42 100 H 96 20 17:38 100 H 20 133/68 20 17:37 102 H 96 20 17:34 101 H 94 20 17:31 100 H 98 20 17:26 119 H 98 20 17:23 99 H 18 155/74 H 20 17:21 99 H 99 20 17:16 94 H 99 20 17:15 38.0 C H 04/05/19 17:11 105 H 98 20 17:06 98 H 141/67 H 98 20 17:01 96 H 98 20 16:56 102 H 98 20 16:51 102 H 147/71 H 97 20 16:46 97 H 98 1820 16:41 92 H 100 1820 16:36 95 H 16 141/71 H 99 18/20 16:31 93 H 99 1820 16:26 96 H 100 18/20 16:23 91 H 138/71 18/20 16:21 90 100 18/20 16:16 97 H 100 20 16:11 87 100 18/20 16:08 90 20 159/72 H 20 16:06 87 100 18/20 16:01 86 100 20 15:56 89 100 04/05/19 15:51 85 142/66 H 100 04/05/19 15:46 103 H 99 04/05/19 15:41 86 100 04/05/19 15:36 88 143/70 H 100 04/05/19 15:31 84 100 04/05/19 15:26 89 100 04/05/19 15:22 85 140/67 04/05/19 15:21 84 100 04/05/19 15:16 85 100 04/05/19 15:11 86 100 04/05/19 15:09 36.5 C 117 H 20 133/60 04/05/19 15:06 103 H 98 04/05/19 15:01 80 99 04/05/19 14:56 78 99 04/05/19 14:51 88 99 04/05/19 14:46 98 H 99 04/05/19 14:41 103 H 93 04/05/19 14:36 82 95 04/05/19 14:35 79 20 156/77 H 04/05/19 14:33 77 94 04/05/19 14:31 80 94 04/05/19 14:26 85 95 04/05/19 14:22 73 158/78 H 04/05/19 14:21 73 94 04/05/19 14:19 70 94 04/05/19 14:16 71 94 04/05/19 14:13 72 94 04/05/19 14:11 69 95 04/05/19 14:06 73 96 04/05/19 14:05 67 150/73 H 04/05/19 14:02 138/80 04/05/19 14:01 82 97 04/05/19 13:56 86 98 04/05/19 13:52 71 20 146/79 H 04/05/19 13:51 70 96 04/05/19 13:46 72 97 04/05/19 13:41 72 97 04/05/19 13:38 73 150/76 H 04/05/19 13:36 78 97 04/05/19 13:31 74 98 04/05/19 13:26 72 97 04/05/19 13:22 74 159/74 H 04/05/19 13:21 74 97 04/05/19 13:16 67 98 04/05/19 13:12 36.9 C 81 20 154/83 H 04/05/19 13:11 73 98 04/05/19 13:07 100 H 179/102 H 04/05/19 13:06 96 H 95 04/05/19 13:01 80 98 04/05/19 12:56 79 98 04/05/19 12:51 70 20 157/84 H 98 04/05/19 12:46 80 98 04/05/19 12:41 81 98 04/05/19 12:37 78 152/81 H 04/05/19 12:36 79 97 04/05/19 12:31 69 96 04/05/19 12:26 70 97 04/05/19 12:22 69 155/76 H 04/05/19 12:21 70 97 04/05/19 12:16 76 98 04/05/19 12:11 72 98 04/05/19 12:09 73 20 160/79 H 04/05/19 12:06 68 97 04/05/19 12:01 76 98 04/05/19 11:56 66 97 04/05/19 11:51 71 144/82 H 97 04/05/19 11:46 74 97 04/05/19 11:41 67 97 04/05/19 11:36 70 20 144/83 H 97 04/05/19 11:31 67 97 04/05/19 11:26 76 97 04/05/19 11:22 68 144/79 H 04/05/19 11:21 70 97 04/05/19 11:16 71 97 04/05/19 11:11 73 98 04/05/19 11:08 36.4 C L 92 H 20 138/88 04/05/19 11:07 101 H 93 04/05/19 11:06 96 H 98 04/05/19 11:01 71 98 04/05/19 10:56 67 98 04/05/19 10:53 67 151/79 H 04/05/19 10:51 74 98 04/05/19 10:46 69 98 04/05/19 10:41 73 98 04/05/19 10:38 71 20 141/78 H 04/05/19 10:36 68 98 04/05/19 10:31 65 97 04/05/19 10:26 63 97 04/05/19 10:23 64 122/70 04/05/19 10:21 67 97 01/18/20 10:16 61 97 04/05/19 10:11 68 98 04/05/19 10:07 75 18 154/91 H 04/05/19 10:06 72 98 04/05/19 10:01 60 97 04/05/19 10:00 16 04/05/19 09:56 61 97 04/05/19 09:52 71 141/84 H 04/05/19 09:51 74 98 04/05/19 09:46 61 97 04/05/19 09:41 62 97 04/05/19 09:38 63 139/78 04/05/19 09:36 63 98 04/05/19 09:31 63 97 04/05/19 09:26 36.5 C 71 20 99 04/05/19 09:23 74 154/94 H 04/05/19 09:21 69 152/90 H 96 04/05/19 09:16 91 H 95 04/05/19 09:13 67 94 04/05/19 09:11 61 97 04/05/19 09:07 68 150/81 H 04/05/19 09:06 70 96 04/05/19 09:01 62 96 04/05/19 08:56 60 96 04/05/19 08:52 65 131/77 04/05/19 08:51 64 97 04/05/19 08:46 60 96 04/05/19 08:41 59 L 96 04/05/19 08:36 63 138/81 97 04/05/19 08:31 68 98 04/05/19 08:26 62 97 04/05/19 08:21 60 121/71 96 04/05/19 08:16 60 97 04/05/19 08:11 60 96 04/05/19 08:09 58 L 123/72 04/05/19 08:06 59 L 97 04/05/19 08:01 59 L 96 04/05/19 07:56 69 97 04/05/19 07:52 59 L 133/78 04/05/19 07:51 61 97 04/05/19 07:46 61 98 04/05/19 07:41 66 98 04/05/19 07:40 68 152/86 H 04/05/19 07:38 69 162/106 H 04/05/19 07:36 69 164/107 H 99 04/05/19 07:31 75 99 04/05/19 07:26 63 98 04/05/19 07:23 66 157/104 H 04/05/19 07:21 65 98 04/05/19 07:16 67 97 04/05/19 07:11 73 98 04/05/19 07:06 36.6 C 67 20 147/99 H 98 04/05/19 07:01 63 97 04/05/19 06:56 61 97 04/05/19 06:51 70 140/94 99 04/05/19 06:46 67 98 04/05/19 06:41 75 98 04/05/19 06:37 66 148/97 H 04/05/19 06:36 66 99 04/05/19 06:33 36.7 C 04/05/19 06:31 80 98 04/05/19 06:26 80 98 04/05/19 06:21 62 147/94 H 97 04/05/19 06:16 61 98 04/05/19 06:11 74 99 04/05/19 06:06 65 142/92 H 98 04/05/19 06:01 66 96 04/05/19 05:56 63 97 04/05/19 05:52 65 149/99 H 04/05/19 05:51 78 98 04/05/19 05:46 80 99 04/05/19 05:41 72 99 04/05/19 05:37 64 150/87 H 04/05/19 05:36 66 97 04/05/19 05:31 60 95 04/05/19 05:26 60 96 04/05/19 05:22 58 L 153/88 H 04/05/19 05:21 60 97 04/05/19 05:16 69 92 04/05/19 05:13 62 93 04/05/19 05:11 58 L 96 04/05/19 05:06 57 L 131/85 96 04/05/19 05:01 59 L 95 04/05/19 04:56 57 L 96 04/05/19 04:52 58 L 146/83 H 04/05/19 04:51 60 95 04/05/19 04:46 59 L 95 04/05/19 04:41 57 L 95 04/05/19 04:36 60 140/82 96 04/05/19 04:31 57 L 96 04/05/19 04:26 60 96 04/05/19 04:23 57 L 145/83 H 04/05/19 04:21 59 L 97 04/05/19 04:16 61 95 04/05/19 04:11 56 L 96 04/05/19 04:06 61 153/90 H 97 04/05/19 04:01 61 95 04/05/19 04:00 36.6 C 18 04/05/19 03:56 57 L 96 04/05/19 03:51 61 132/71 96 04/05/19 03:46 61 95 04/05/19 03:41 59 L 96 04/05/19 03:37 57 L 122/76 04/05/19 03:36 57 L 96 04/05/19 03:31 58 L 96 04/05/19 03:26 57 L 95 04/05/19 03:23 56 L 125/77 04/05/19 03:21 55 L 95 04/05/19 03:16 54 L 96 04/05/19 03:11 79 98 04/05/19 03:06 56 L 133/86 97 04/05/19 03:01 57 L 96 04/05/19 02:56 56 L 96 04/05/19 02:52 56 L 127/83 04/05/19 02:51 55 L 96 04/05/19 02:46 59 L 96 04/05/19 02:41 55 L 97 04/05/19 02:38 55 L 133/82 04/05/19 02:36 57 L 97 04/05/19 02:31 58 L 98 04/05/19 02:30 36.6 C 18 04/05/19 02:26 57 L 96 04/05/19 02:21 65 130/79 97 04/05/19 02:16 66 96 04/05/19 02:15 70 93 04/05/19 02:11 59 L 97 04/05/19 02:06 64 127/76 97 04/05/19 02:05 68 93 04/05/19 02:01 63 96 04/05/19 01:56 64 95 04/05/19 01:51 74 137/83 96 04/05/19 01:46 70 97 04/05/19 01:41 58 L 96 04/05/19 01:36 59 L 127/81 97 04/05/19 01:31 74 98 04/05/19 01:26 62 97 04/05/19 01:23 60 127/79 04/05/19 01:21 60 97 04/05/19 01:16 63 97 04/05/19 01:11 64 97 04/05/19 01:08 72 118/81 04/05/19 01:06 60 97 04/05/19 01:01 59 L 97 04/05/19 00:56 60 96 04/05/19 00:52 58 L 125/78 04/05/19 00:51 60 96 04/05/19 00:46 80 96 04/05/19 00:41 65 96 04/05/19 00:36 63 122/74 96 04/05/19 00:31 63 97 04/05/19 00:26 63 96 04/05/19 00:22 62 123/72 04/05/19 00:21 62 96 04/05/19 00:16 62 96 04/05/19 00:11 62 96 04/05/19 00:06 66 119/75 97 04/05/19 00:01 71 96 04/05/19 00:00 36.7 C 04/04/19 23:56 73 96 04/04/19 23:51 65 120/73 95 04/04/19 23:46 69 95 04/04/19 23:41 80 95 Pain Intensity Bilateral Anterior Abdomen: Pain Intensity: 2 Transfer of Care Handoff Completed per policy Notes Mental Status: alert / awake / arousable and participated in evaluation Patient Amnestic to Procedure: Yes Nausea / Vomiting: adequately controlled Pain: adequately controlled Airway Patency, RR, SpO2: stable & adequate BP & HR: stable & adequate Hydration State: stable & adequate Anesthetic Complications: no major complications apparent
[2019-04-06] MEDS: LABETALOL HCL 100 MG TAB PO SCH ×4 (01:04→20:27)
[2019-04-06] MEDS: LEVOTHYROXINE SODIUM 175 MCG TABLET PO SCH (06:08)
[2019-04-06] MEDS: OXYTOCIN 20 UNITS in LACTATED RINGER'S 1,000 ML IV SCH ×2 (06:08→14:00)
[2019-04-06 06:22] LABS: Basophils # (auto) 0.01 K/uL (0-0.2); Basophils % (auto) 0.1 %; Hematocrit (blood only) 36.9 % (37-47); Hemoglobin 12.4 g/dL (12.0-16.0); Immature Granulocytes # (auto) 0.04 K/uL (0.00-0.02); Immature Granulocytes % (auto) 0.2 %; Lymphocytes # (auto) 0.87 K/uL (1.2-3.4); Lymphocytes % (auto) 4.9 %; Mean Corpuscular Hemoglobin 27.9 pg (25-34); Mean Corpuscular Hgb Conc 33.6 g/dL (32-36); Mean Corpuscular Volume 83.1 fL (80-100); Mean Platelet Volume 11.8 fL (7.4-10.4); Monocytes % (auto) 6.2 %; Neutrophils # (auto) 15.79 K/uL (1.4-6.5); Neutrophils % (auto) 88.6 %; Platelet Count 162 K/uL (130-400); RDW Coefficient of Variation 15.3 % (11.5-14.5); RDW Standard Deviation 46.9 fL (36.4-46.3); Red Blood Count 4.44 M/uL (4.2-5.4); White Blood Count 17.81 K/uL (4.8-10.8)
[2019-04-06] MEDS: DOCUSATE SODIUM 100 MG CAP PO SCH ×2 (08:35→20:27)
[2019-04-06] MEDS: FERROUS SULFATE 325 MG TAB PO SCH (08:35)
[2019-04-06] MEDS: PRENATAL VITAMIN 1 TAB PO SCH (08:35)
[2019-04-06] MEDS: SIMETHICONE 80 MG CHEW PO SCH ×4 (08:35→20:27)
[2019-04-06] MEDS ORDERED: DiphenhydrAMINE HCL 50 MG/ML VIAL IV PRN (14:57)
[2019-04-06] MEDS ORDERED: ZOLPIDEM TARTRATE 5 MG TAB PO PRN (14:57)
[2019-04-06] MEDS ORDERED: ONDANSETRON INJ 2 MG/ML 2 ML VIAL IV PRN (14:57)
[2019-04-06] MEDS ORDERED: PROMETHAZINE HCL 25 MG in SODIUM CHLORIDE 0.9% 50 ML IV PRN (14:57)
[2019-04-06] MEDS ORDERED: MEPERIDINE HCL 50 MG/ML CARP IV PRN (14:57)
[2019-04-06] MEDS ORDERED: DC INTRASPINAL MORPHINE SCH (14:57)
[2019-04-06] MEDS ORDERED: KETOROLAC 30 MG/ML VIAL IV PRN (14:57)
[2019-04-06] MEDS ORDERED: LACTATED RINGER'S 500 ML IV ONE (15:09)
--- NOTE | 2019-04-06 15:16 | Obstetrical Progress Note ---
Date of Service April 06, 2019 Physical Exam Physical Exam: abdomen soft and non tender bowel sounds present hypoactive incision is clean and dry bandage removed no calf tenderness vaginal bleeding scant hgb 12.0 Results & Data Vital Signs (Past 12 Hours) Vital Signs Temp Pulse Resp BP Pulse Ox 04/06/19 14:00 18 96 04/06/19 13:50 80 18 99/65 L 96 04/06/19 13:15 18 96 04/06/19 12:15 18 96 04/06/19 11:15 36.5 C 77 18 100/56 L 96 04/06/19 10:15 18 97 04/06/19 09:15 18 96 04/06/19 08:15 36.7 C 80 18 116/73 95 04/06/19 07:15 18 93 04/06/19 06:05 94 H 123/75 04/06/19 06:00 16 93 04/06/19 05:00 16 93 04/06/19 04:20 36.7 C 78 16 122/76 94
[2019-04-06] MEDS: IBUPROFEN 600 MG TAB PO PRN ×2 (17:01→23:47)
[2019-04-06] MEDS: OXYCODONE/ACETAMINOPHEN 5mg/325mg TAB PO PRN ×2 (17:02→23:48)
[2019-04-06] MEDS ORDERED: bisacodyL 5 MG TABEC PO SCH (20:00)
[2019-04-06] MEDS: CLINDAMYCIN 900 MG in DEXTROSE 5% 50 ML IV SCH (23:46)
[2019-04-07] MEDS: OXYCODONE/ACETAMINOPHEN 5mg/325mg TAB PO PRN ×3 (06:10→19:55)
[2019-04-07] MEDS: LEVOTHYROXINE SODIUM 175 MCG TABLET PO SCH (06:10)
[2019-04-07] MEDS: IBUPROFEN 600 MG TAB PO PRN ×3 (06:10→19:54)
[2019-04-07 06:20] LABS: Hematocrit (blood only) 31.9 % (37-47); Hemoglobin 10.8 g/dL (12.0-16.0)
[2019-04-07] MEDS: PRENATAL VITAMIN 1 TAB PO SCH (07:44)
[2019-04-07] MEDS: FERROUS SULFATE 325 MG TAB PO SCH (07:44)
[2019-04-07] MEDS: DOCUSATE SODIUM 100 MG CAP PO SCH ×2 (07:44→20:58)
[2019-04-07] MEDS: SIMETHICONE 80 MG CHEW PO SCH ×3 (07:44→20:58)
[2019-04-07] MEDS: CLINDAMYCIN 900 MG in DEXTROSE 5% 50 ML IV SCH ×3 (07:44→23:54)
--- NOTE | 2019-04-07 08:00 | Operative Report ---
DATE OF OPERATION: 04/05/2019 PROCEDURE: Primary section. INDICATIONS FOR SURGERY: Cephalopelvic disproportion, toxemia, failed induction. PREOPERATIVE DIAGNOSES: Toxemia, cephalopelvic disproportion. POSTOPERATIVE DIAGNOSES: Toxemia, cephalopelvic disproportion, nuchal cord x1 direct OP. SURGEON: Linda Gallegos MD. COMMUNITY WORKER: Matteo Joy MD. ESTIMATED BLOOD LOSS: 600 mL. ANESTHESIA: Epidural. OPERATIVE FINDINGS AND PROCEDURE: The patient was brought to the OR table, correctly identified by armband and conversation. Epidural anesthesia had been administered earlier in her labor . Compression stockings were applied. Landa catheter was inserted aseptically in the bladder, connected to gravity drainage. Lower abdomen was painted with an alcohol based sterilizing solution, draped in the usual sterile fashion as the level of anesthesia was tested and found to be adequate. Then, a Pfannenstiel incision was made, carried down to the anterior fascia by sharp dissection. Hemostasis was secured by electrocauterization. Fascia was incised transversely from the underlying muscle by blunt and sharp dissection. Recti muscles were in the midline. Peritoneum was carefully raised and entered. An abdominal retractor was placed into the incision. Lower uterine segment was exposed. Incision was made above the vesicouterine fold. Bladder was undermined bluntly and pushed out of the operative field. Lower uterine segment was scored with a knife. I placed my hand into the uterine cavity and grasped the head. At the time I did this, I noted that the infant was looking straight up indicating direct occiput posterior position. I applied a vectis retractor, the head rotated and then we had some difficulty getting the shoulders out, but we were able to do it successfully. Following this, we took the section of the cord for cord blood, collected cord blood for lab analysis and the was handed off to the senior research consultant, Dr. Barragan, who was present at the time of delivery. Following this, placenta was removed manually. Uterus, tubes and ovaries were brought out through the incision. The extent of the lower uterine segment defect was identified. The myometrium was approximated with continuous interlocking suture of chromic. Then a second layer was placed over that with a heavy duty Vicryl and then about 3 or 4 [id number] sutures of heavy duty chromic were used to complete the approximation and complete the hemostasis. Following this, peritoneal edges restored with a running 3-0 chromic, which restored the integrity of the vesicouterine fold. Pelvis was cleansed of all blood clots and debris. Broad ligaments were inspected. There was no hematoma formation. Uterus, tubes and ovaries were reinserted into the abdominal cavity. Careful anatomical approximation of the anterior abdominal wall was performed. The peritoneum was closed with a mattress suture of chromic catgut. Recti muscles approximated with interrupted figure-of-8 suture of chromic catgut. Fascia was closed with a continuous interlocking suture of Vicryl, subQ was closed with a running plain and skin edge approximated with staple clips. I attest to the content of the Intraoperative Record and any orders documented therein. Any exceptions are noted below. ULICESD
[2019-04-07] MEDS: LABETALOL HCL 100 MG TAB PO SCH ×2 (09:11→20:57)
[2019-04-07] MEDS ORDERED: GENTAMICIN CONSULT ACTIVE PRN (09:30)
[2019-04-07] MEDS ORDERED: GENTAMICIN SULFATE 420 MG in DEXTROSE 5% 100 ML IV SCH (09:30)
[2019-04-07] MEDS: GENTAMICIN SULFATE 600 MG in DEXTROSE 5% 100 ML IV SCH (09:57)
--- NOTE | 2019-04-07 10:22 | Surgery Progress Note ---
Date of Service April 07, 2019 Subjective doing well tolerating diet passing gas Physical Exam Constitutional: WD/WN, vitals as above comfortable abdomen soft and non- tender incision clean dry and intact no edema neg Julio's E.coli on placental culture will start Gentamycin Results & Data Vital Signs (Past 12 Hours) Vital Signs Temp Pulse Pulse Resp BP BP 04/07/19 09:34 89 113/74 04/07/19 08:00 36.9 C 92 H 18 126/81 04/06/19 23:48 36.4 C L 89 18 120/78
--- NOTE | 2019-04-07 12:06 | Pharmacy Report ---
Pharmacy Abx Initial Consult - Date of Service April 07, 2019 - Pharmacy Dosing Scope Date of Consult: 04/07 Consultation requested by: Dr. Klein Pharmacy is consulted to initiate gentamicin IV/PO dosing therapy, order appropriate labs and adjust drug dose/frequency. - Subjective The patient is a 28 year old F admitted on 04/01/19 20:45. - Objective Height: 5 ft 7 in Weight: 120.1 kg Vital Signs (Past 12hrs): Vital Signs Temp Pulse Pulse Resp BP 04/07/19 09:34 89 113/74 04/07/19 08:00 36.9 C 92 H 18 126/81 Micro Results: 04/05/19 21:40 Gram Stain - Final Placental,Maternal 04/05/19 18:50 Urine Culture - Final Urine,Indwelling Cath Escherichia coli#2 Escherichia coli - Assessment & Plan Assessment 28 year old F 2 days , with caesarean section on 04/05. Placental culture current growing gram negative bacilli, mathis-sensitive E. coli, strep species. Urine culture growing E. coli. Patient is currently being treated with clindamycin and gentamicin. Will utilize extended infusion dosing in the post- setting. Plan Gentamicin * Dose: 600 mg (5 mg/kg actual body weight) q24H * Trough will be ordered prior to 4th dose if continued greater than 72 hours Pharmacy will continue to follow and will adjust dose/frequency as necessary. Thank you.
[2019-04-07 12:41] LABS: Creatinine Clr Calc Pharmacy 124.9 ml/min; Est GFR (African American) 100.9
[2019-04-07] MEDS ORDERED: bisacodyL 10 MG SUPP PR PRN (21:36)
[2019-04-08] MEDS: OXYCODONE/ACETAMINOPHEN 5mg/325mg TAB PO PRN ×5 (00:01→18:44)
[2019-04-08] MEDS: IBUPROFEN 600 MG TAB PO PRN ×5 (00:01→18:44)
[2019-04-08] MEDS: LEVOTHYROXINE SODIUM 175 MCG TABLET PO SCH (06:17)
[2019-04-08 08:07] LABS: Creatinine Clr Calc Pharmacy 151.9 ml/min; Est GFR (African American) 127.8; Est GFR (Non-African American) 110.3
[2019-04-08] MEDS: PRENATAL VITAMIN 1 TAB PO SCH (08:07)
[2019-04-08] MEDS: CLINDAMYCIN 900 MG in DEXTROSE 5% 50 ML IV SCH ×2 (08:07→15:26)
[2019-04-08] MEDS: FERROUS SULFATE 325 MG TAB PO SCH (08:07)
[2019-04-08] MEDS: SIMETHICONE 80 MG CHEW PO SCH ×3 (08:07→18:44)
[2019-04-08] MEDS: DOCUSATE SODIUM 100 MG CAP PO SCH (08:07)
[2019-04-08] MEDS: LABETALOL HCL 100 MG TAB PO SCH ×2 (08:13→19:52)
[2019-04-08 09:45] LABS: Basophils # (auto) 0.01 K/uL (0-0.2); Basophils % (auto) 0.1 %; Eosinophils # (auto) 0.03 K/uL (0-0.5); Eosinophils % (auto) 0.3 %; Hematocrit (blood only) 31.6 % (37-47); Hemoglobin 10.5 g/dL (12.0-16.0); Immature Granulocytes # (auto) 0.06 K/uL (0.00-0.02); Immature Granulocytes % (auto) 0.7 %; Lymphocytes # (auto) 0.61 K/uL (1.2-3.4); Lymphocytes % (auto) 6.8 %; Mean Corpuscular Hemoglobin 27.6 pg (25-34); Mean Corpuscular Volume 82.9 fL (80-100); Mean Platelet Volume 11.2 fL (7.4-10.4); Monocytes # (auto) 0.68 K/uL (0.11-0.59); Monocytes % (auto) 7.6 %; Neutrophils % (auto) 84.5 %; Platelet Count 150 K/uL (130-400); RDW Coefficient of Variation 15.7 % (11.5-14.5); RDW Standard Deviation 47.4 fL (36.4-46.3); Red Blood Count 3.81 M/uL (4.2-5.4); White Blood Count 8.99 K/uL (4.8-10.8)
--- NOTE | 2019-04-08 09:46 | Obstetrical Progress Note ---
Date of Service April 08, 2019 Assessment & Plan (1) delivery delivered: c/sec day 3 pt doing well s/p +E/COLI from placental culx pt on amp and gent x 3 days CBC pending today will d/c Subjective Ambulation: ambulating normally Voiding: no voiding problems Passing Gas:: Yes Diet Tolerance:: clear liquids Lochia:: Small Feeding Type:: breast feeding Review of Systems All systems reviewed & are unremarkable except as noted in HPI & below Physical Exam Constitutional WD/WN, vitals as above well developed and well nourished Eyes PERRL, conjunctivae normal, anicteric sclerae ENMT external ear and nose normal, oropharynx normal Neck trachea midline, no thyromegaly Respiratory normal respiratory effort, lungs clear to auscultation Cardiovascular RRR, no murmur, no edema Chest (Breasts) normal inspection/palpation of breasts Gastrointestinal (Abdomen) normal bowel sounds, soft, nontender, no hepatosplenomegaly Musculoskeletal no cyanosis or clubbing, extremities motor strength 5/5 Skin no rashes, warm and dry + incision (Clean,dry and intact) Neurologic patellar DTR's 2+ bilat, sensation intact Psychiatric A+Ox3, euthymic affect Genitourinary normal external appearance Lymphatic no cervical or axillary lymphadenopathy Results & Data Vital Signs (Past 12 Hours) Vital Signs Temp Pulse Resp BP Pulse Ox 04/08/19 00:00 36.5 C 80 16 120/80 97
[2019-04-08 09:47] LABS: Mean Corpuscular Hgb Conc 33.2 g/dL (32-36)
[2019-04-08] MEDS: GENTAMICIN SULFATE 600 MG in DEXTROSE 5% 100 ML IV SCH (09:56)
[2019-04-08 16:59] VITALS: BP 156/98; PULSE 83; TEMP 97.9; O2SAT 98
--- NOTE | 2019-04-08 18:52 | Obstetrical Progress Note ---
Date of Service April 08, 2019 Subjective ID was consulted. they are unable to seept today pt is upset and crying she is unable to go home today Plan d/c home Results & Data Vital Signs (Past 12 Hours) Vital Signs Temp Pulse Pulse Resp BP BP Pulse Ox 04/08/19 16:50 36.6 C 83 18 156/98 H 98 04/08/19 16:27 36.4 C L 85 85 18 125/80 130/83 99 04/08/19 14:00 125/80 04/08/19 13:10 36.4 C L 85 85 18 149/93 H 99 04/08/19 07:50 36.8 C 75 18 130/83 96
--- NOTE | 2019-04-15 11:21 | Discharge Summary ---
She is a 1 para 1. She was admitted to the hospital essentially at term with toxemia of . She then was started on induction. Induction lasted several days. She had 2 Cervidil tapes. She had several doses of Cytotec. She ended on ended up on IV Pitocin. She eventually became fully dilated, pushed, had an anterior cervical lip and basically had an arrest of descent at about a -2 station. During this time we gave her maximum doses of Pitocin, occasionally had to shut the Pitocin back due to non-reassuring heart rate tracing and she also preoperatively spiked a temperature of 100.4. She was given a diagnosis of cephalopelvic disproportion, taken to the OR where she underwent primary low segment section. At the time of surgery I cultured the surface of the placenta. She did have preoperative antibiotics. Postoperatively she did well; however, the culture showed bacteria growing out of the placental culture. She was placed back on antibiotics. She proceeded to do well during her postoperative course. She became afebrile. Her bowel sounds returned. Her hemoglobin stabilized and she was eventually discharged to be followed in home and office through the [facility].
--- NOTE | 2019-04-17 07:16 | Coding Query ---
PATHOLOGY To promote full compliance with coding requirements relating to patient care, physician participation is requested in all cases of medical coder uncertainty. Please assist us with the question(s) below: Please review the Pathology report and please document any relevant diagnosis(es) below: Diagnosis(es): toxemia of failed induction chorioamnionitis Thank you Silvia SMITH
== END 2019-04-08 20:10 | disposition home or self-care (01) | DRG 786 ==
LOC: 4S1 17:40 → OPB 17:40 → INTOOBSV 18:27 → 4S1 18:27 → OBSVTOIN 20:45 → 4S2 23:36 → 4S1 04-02 11:59 → 4S2 04-06 00:20